=== PATIENT | female | born 1965 | race African-American/Black ===

== ENCOUNTER 2018-01-20 06:10 | Emergency (ER) | payer OTHER ==
[2018-01-20 06:57] LABS: ADD MAN DIFF? NO
[2018-01-20 07:02] LABS: BASO % 1 % (0-3); EOS # 0.1 x10^3/uL (0.0-0.7); EOS % 2 % (0-3); HEMATOCRIT 39.3 % (36.0-47.0); HEMOGLOBIN 13.3 g/dL (12.0-15.5); LYMPH # 1.9 x10^3/uL (1.0-4.8); LYMPH % 34 % (24-48); MEAN CORPUSCULAR HEMOGLOBIN 31 pg (25-35); MEAN CORPUSCULAR HGB CONC 34 g/dL (31-37); MEAN CORPUSCULAR VOLUME 91 fL (79-100); MONO # 0.4 x10^3/uL (0.0-1.1); MONO % 8 % (0-9); NEUT # 3.1 x10^3uL (1.8-7.7); NEUT % 56 % (31-73); PLATELET COUNT 225 x10^3/uL (140-400); RED CELL DISTRIBUTION WIDTH 13.5 % (11.5-14.5); WHITE BLOOD COUNT 5.6 x10^3/uL (4.0-11.0)
[2018-01-20] MEDS: MECLIZINE HCL 12.5 MG TABLET. PO (07:10)
[2018-01-20] MEDS: ONDANSETRON PF 4 MG/2 ML VIAL. IV (07:10)
[2018-01-20 07:18] LABS: ALBUMIN 3.9 g/dL (3.4-5.0); ALK PHOS 82 U/L (46-116); ALT (SGPT) 31 U/L (14-59); ANION GAP 10 (6-14); AST (SGOT) 20 U/L (15-37); BLOOD UREA NITROGEN 13 mg/dL (7-20); BUN/CREATININE RATIO 14 (6-20); CALCIUM 9.2 mg/dL (8.5-10.1); CARBON DIOXIDE 26 mmol/L (21-32); CHLORIDE 104 mmol/L (98-107); CREATININE 0.9 mg/dL (0.6-1.0); GFR 79.9; GLUCOSE 98 mg/dL (70-99); POTASSIUM 4.6 mmol/L (3.5-5.1); SODIUM 140 mmol/L (136-145); TOTAL BILIRUBIN 0.4 mg/dL (0.2-1.0); TOTAL PROTEIN 7.7 g/dL (6.4-8.2)
[2018-01-20 07:20] LABS: TROPONINI < 0.017 ng/mL (0.000-0.055)
[2018-01-20 07:44] LABS: BILIRUBIN,URINE NEGATIVE (NEG); CLARITY,URINE CLEAR; COLOR,URINE YELLOW; GLUCOSE,URINE NEGATIVE (NEG); NITRITE,URINE NEGATIVE (NEG); PROTEIN,URINE NEGATIVE (NEG-TRACE); UROBILINOGEN,URINE 0.2 mg/dL (0.2 mg/dL)
[2018-01-20 07:45] LABS: BACTERIA,URINE 0 /HPF (0-FEW); RBC,URINE 0 /HPF (0-2); SQUAMOUS EPITHELIAL CELL,UR FEW /LPF; WBC,URINE RARE /HPF (0-4)
[2018-01-20] MEDS: ASPIRIN CHEWABLE 81 MG TABLET. PO (08:34)
== END 2018-01-20 08:32 | disposition home or self-care (01) ==
LOC: ER 06:10
DX: R42 Dizziness and giddiness (principal); R11.2 Nausea with vomiting, unspecified
CPT/HCPCS: 36415; 70450; 71046; 80053; 81001; 84443; 84484; 85025; 93005; 96374; 99285-25; J2405; J8597

== ENCOUNTER → 2018-06-06 | Outpatient (CLI) | payer OTHER ==
[2018-01-20 08:22] VITALS: BP 151/70
[~2018-06-06] MED LIST: ASPI81TA50 PO; ATOR10TA60 PO; LEVO1TAB8 PO; MECL25TA3 PO
--- NOTE | 2018-06-06 10:21 | CARD ---
MR#: [id number] Date of Study: 06/06/2018 Ordering Physician: HETAL BURTON, Referring Physician: HETAL BURTON, Tech: Elicia Martin APPROVED REPORT EXAM: Two-dimensional and M-mode echocardiogram with Doppler and color Doppler. Other Information Quality : GoodHR: 73bpm INDICATION Dyspnea RISK FACTORS Hyperlipidemia 2D DIMENSIONS RVDd2.9 (2.9-3.5cm)Left Atrium(2D)2.3 (1.6-4.0cm) IVSd0.7 (0.7-1.1cm)Aortic Root(2D)2.4 (2.0-3.7cm) LVDd4.0 (3.9-5.9cm)LVOT Diameter2.1 (1.8-2.4cm) PWd1.1 (0.7-1.1cm)LVDs2.9 (2.5-4.0cm) FS (%) 26.4 %SV36.0 ml LVEF(%)52.3 (>50%) Aortic Valve AoV Peak Noam.113.1cm/sAoV VTI20.5cm AO Peak GR.5.1mmHgLVOT Peak Noam.75.9cm/s LVOT VTI 16.01cmAO Mean GR.3mmHg FRANCESCO (VMAX)1.64ib4ZIZ (VTI)2.76cm2 Mitral Valve MV E Qtuqpdnw79.4cm/sMV DECEL VCLG367gm MV A Alutcbpa20.2cm/sMV HVU50sz E/A Ratio0.9MVA (PHT)2.95cm2 TDI E/Lateral E'5.2E/Medial E'6.0 Pulmonary Valve PV Peak Niitsdit55.2cm/sPV Peak Grad.2mmHg Tricuspid Valve RAP [id number] Pulmonary Vein S1 Uxhnojcl95.7cm/sD2 Iaqrngqx08.2cm/s LEFT VENTRICLE The left ventricle is normal size. There is normal left ventricular wall thickness. The left ventricu lar systolic function is normal. The Ejection Fraction is 55%. There is normal LV segmental wall shannen on. Transmitral Doppler flow pattern is Grade I-abnormal relaxation pattern. RIGHT VENTRICLE The right ventricle is normal size. There is normal right ventricular wall thickness. The right ventr icular systolic function is normal. ATRIA The left atrium size is normal. The right atrium size is normal. The interatrial septum is intact wit h no evidence for an atrial septal defect or patent foramen ovale as noted on 2-D or Doppler imaging. AORTIC VALVE The aortic valve is normal in structure and function. Doppler and Color Flow revealed trace aortic re gurgitation. There is no significant aortic valvular stenosis. MITRAL VALVE The mitral valve is thickened but opens well. Doppler and Color-flow revealed trace mitral regurgitat ion. TRICUSPID VALVE The tricuspid valve is normal in structure and function. Doppler and Color Flow revealed trace tricus pid regurgitation. There is no tricuspid valve stenosis. PULMONIC VALVE The pulmonic valve is not well visualized. Doppler and Color Flow revealed trace pulmonic valvular re gurgitation. GREAT VESSELS The aortic root is normal in size. Normal pulmonary venous flow (Doppler). The IVC is normal in size and collapses >50% with inspiration. PERICARDIAL EFFUSION There is no evidence of significant pericardial effusion. Critical Notification Critical Value: No <Conclusion> The left ventricular systolic function is normal. The Ejection Fraction is 55%. There is normal LV segmental wall motion. Trace mitral regurgitation. Trace tricuspid regurgitation. There is no evidence of significant pericardial effusion. Signed by : Tomer Garcia, Electronically Approved : 06/06/2018 10:18:42
== END | disposition home or self-care (01) ==
LOC: ECHO 08:01
PROVIDERS: ATTEND Internal Medicine Cardiovascular Disease
DX: R06.09 Other forms of dyspnea (principal); E78.5 Hyperlipidemia, unspecified
CPT/HCPCS: 93306